=== PATIENT | male | born 1995 | race Caucasian/White ===

== ENCOUNTER 2023-07-04 16:01 | Emergency (ER) | payer SELFPAY ==
--- NOTE | 2023-07-04 16:39 | ED.GENMED ---
History of Present Illness
General
Chief Complaint: CODE-TRAUMA
Source: family and ambulance crew
Time Seen by Provider: 07/04/23 16:02
History of Present Illness
History of Present Illness:
27-year-old male presents to the emergency room via paramedics after being found with a large laceration to his left neck. Patient was found in the bathroom by his boyfriend and his father. History obtained from father and boyfriend. Patient
evidently had gone upstairs to take a shower. He was in the bathroom for an extended period of time. They became concerned about him given the amount of time he was in the bathroom. Upon knocking on the door of the bathroom the patient evidently
opened the door and collapsed facedown. They observed a large laceration on the left neck. 911 was called. Paramedics arrived and found the patient with evidently some signs of life but quickly became unresponsive. They intubated him, placed a
intraosseous line, started IV fluids and ACLS protocol. CPR was provided and a Elpidio device eventually applied. Medics report his rhythm to be PEA and asystole en route. Upon arrival to the emergency room the patient was noted to be in asystole
with an occasional wide-complex beat. Family states the patient evidently inflicted this wound on himself.
Past History
Past History
ED Past Medical History: Psychiatric (anxiety and is on prozac)
ED Past Surgical History: Other (wisdom teeth)
Patient has exhibited threatening behavior?: No
Social History
Tobacco: Non-smoker
Alcohol: Other (pt is on vivitrol injections)
Drug: None
Personal: Single
Living: with family
Employment: Employed
Family History
Family History: Unable to obtain
Phy Exam
Physical Exam
Physical Exam:
CODE EXAM:
VITAL SIGNS: No palpable blood pressure, no pulses, no respiration.
GENERAL EXAM: Pale
EYES: Pupils fixed
ENT: Patient intubated
NECK: Approximately 15 cm laceration noted on the lower left neck starting from essentially the center of the trachea and progressing inferiorly to the posterior neck. There is essentially no active bleeding from the wound despite CPR being
provided by a Elpidio device. Wound appears to extend deeply into muscular structures.
RESPIRATORY: Equal breath sounds with portable ventilator which the medics had applied
CARDIAC: Absent heart sounds
VASCULAR: Absent pulses
ABDOMEN: Soft no masses
GUAIAC: Not done
MUSCULOSKELETAL: Unable to evaluate strength
EXTREMITIES: No edema or contractures, approximately 5 cm laceration left wrist with exposed, but intact, flexor tendons
SKIN: Pale, cool no rash
PSYCH: Mood, affect unable to evaluate
Course
Orders/Labs/Results
Orders:
Orders
07/04/23 16:02
EPINEPHrine [Adrenalin 1 mg/10 ml] 6 mg .ROUTE .STK-MED ONE
MDM/Problems Addressed
MDM/Problems Addressed:
Patient arrives in cardiac arrest after atraumatic neck wound. Given the fact the patient is essentially asystolic, is not bleeding from the wound and appears very pale and cool it appears he has exsanguinated from this wound. Providing further
ACLS medications would be fruitless as the primary problem is lack of blood. The time elapsed from arrival of the paramedics was approximately 40 to 50 minutes. Given his prolonged downtime with exsanguination attempting to resuscitate with blood
was deemed futile as the chances of meaningful recovery are essentially 0. Patient pronounced at 1604.
*Pulse Oximetry
Patient hypoxic: not evaluated
*Senior It Specialist Interpretation
Interpretation: abnormal
Rhythm: other (Asystole with occasional idioventricular beat)
*Critical Care Note
Total Time (30-74mins, 75-104mins- exclusive of procedures): 30 min
comment:
Critical care statement: A total of 30 minutes of critical care time was provided for this patient. This includes initial code response, discussion with family, discussion with medical assembler and documentation.
ED Attending Note
-
Portions of this chart may have been created with voice recognition software.� Occasional wrong word or��sound alike� substitutions may have occurred due to the inherent limitations of voice recognition software.
Discharge Plan
Departure
Patient Disposition:
Date of Disposition: 07/04/23
Time of Disposition: 16:51
Discharge Problem:
Complex laceration of neck, EXSANGUINATION
Prescriptions:
No Action
naltrexone 50 MG tablet
50 mg PO DAILY
fluoxetine 20 MG capsule
40 mg PO DAILY
doxycycline hyclate 100 MG capsule
100 mg PO Q12 Qty: 20 0RF
doxycycline hyclate 100 mg capsule
100 mg PO BID Qty: 20 0RF
levofloxacin 500 mg tablet
500 mg PO DAILY Qty: 10 0RF
Referrals:
UNKNOWN,NO INTERVIEW [Family Provider] -
Interventions
Interventions:
*Nursing Disposition Last Done: 07/04/23 20:40
Discharge Date and Time
Discharge Date/Time: 07/04/23 20:40
Print Language: PARAGUAYAN
--- NOTE | 2023-07-04 17:41 | CHAP ---
Emotional and spiritual support provided to family. End of life prayers given, stories shared. In deep shock and grief.
== END 2023-07-04 20:40 | disposition expired ==
LOC: EMR 16:01
PROVIDERS: EMERGENCY PHYSICIAN Emergency Medicine
DX: I46.9 Cardiac arrest, cause unspecified (principal); S11.91XA Laceration without foreign body of unspecified part of neck, initial encounter; S61.512A Laceration without foreign body of left wrist, initial encounter; R58 Hemorrhage, not elsewhere classified; X78.9XXA Intentional self-harm by unspecified sharp object, initial encounter; Y93.89 Activity, other specified; Y92.002 Bathroom of unspecified non-institutional (private) residence as the place of occurrence of the external cause; F41.9 Anxiety disorder, unspecified
CPT/HCPCS: 99291